=== PATIENT | male | born 1960 | race Caucasian/White ===

== ENCOUNTER → 2018-03-19 08:43 | Outpatient (CLI) | payer OTHER, SELFPAY ==
[2018-03-19 09:56] LABS: Add Manual Diff / Slide Review NO; Basophils Percent Auto 0.4 % (0-2); Eosinophils Percent Auto 1.9 % (2-4); Hematocrit 45.7 % (41-53); Hemoglobin 15.5 g/dL (13.5-17.5); Lymphocytes Percent Auto 27.4 % (25-40); Mean Corpuscular HGB Conc 33.9 % (30-36); Mean Corpuscular Hemoglobin 31.4 PG (26-34); Mean Corpuscular Volume 92.5 fL (80-100); Monocytes Percent Auto 7.7 % (3-14); Neutrophils Absolute Auto 3400 /uL (3000-5900); Neutrophils Percent Auto 62.6 % (50-75); Platelet Count 260 X10^3/uL (150-400); Red Blood Cell Count 4.94 X10^6/uL (4.5-5.9); Red Cell Distribution Width 12.9 % (11.6-14.8); White Blood Cell Count 5.5 X10^3/uL (4.5-11.0)
[2018-03-19 10:01] LABS: Carbon Dioxide 26 mmol/L (22-32); Chloride 105 mmol/L (98-107); HEMOLYSIS < 15 (0-50); Potassium 4.2 mmol/L (3.4-5.1); Sodium 143 mmol/L (137-145)
== END ==
PROVIDERS: Visit Provider Orthopaedic Surgery
DX: Z01.818 Encounter for other preprocedural examination (principal); M16.11 Unilateral primary osteoarthritis, right hip; Z01.812 Encounter for preprocedural laboratory examination
CPT/HCPCS: 36415; 80051; 85025; 93005; 93010

== ENCOUNTER 2018-04-11 07:47 | Inpatient (IN) | payer OTHER, SELFPAY ==
[2018-03-25 10:46] VITALS: BMI 38.5
[2018-04-11] VITALS (13 sets, daily range): BP systolic 104–148; BP diastolic 57–92; PULSE 52–92; RESP 11–18; TEMP 35.7–36.5; O2SAT 94–100; BMI 38.2
--- NOTE | 2018-04-11 06:00 | DI.RAD.S_ITS ---
PROCEDURE: XR PELVIS 1-2V INDICATIONS: prosthesis placement TECHNIQUE: 1 view of the lower pelvis acquired. COMPARISON: [facility] [place], [place], XR PELVIS WITH LATERAL HIP RIGHT, 03/22/2018, 9:14. FINDINGS: Bones: Patient is status post right hip arthroplasty, with hardware components in expected positions. The hip joint appears congruent. The visualized bony structures appear intact. Degenerative changes of the lower lumbar spine and left hip are not well characterized. Soft tissues: Overlying postoperative changes are noted. No suspicious soft tissue densities. No unexpected radiopaque foreign bodies are evident. Skin johana overlying the right thigh are present. IMPRESSION: Expected postoperative changes related to a right hip arthroplasty. Dictated by: Deon Ring M.D. on 04/11/2018 at 12:41 Approved by: Deon Ring M.D. on 04/11/2018 at 12:42
[2018-04-11] MEDS: ACETAMINOPHEN 325 MG TABLET 975 MG PO (08:29)
[2018-04-11] MEDS: CELECOXIB 200 MG CAPSULE PO (08:30)
[2018-04-11] MEDS: LACTATED RINGERS 1,000 ML 42 ML IV (08:30)
[2018-04-11] MEDS: PREGABALIN 75 MG CAPSULE PO (08:30)
--- NOTE | 2018-04-11 09:54 | PM.PREOP ---
Pre-operative Note Interval Note Pre-op Check: Yes History & Physical Reviewed by Physician Changes: No
[2018-04-11] MEDS: CEFAZOLIN 2 GM/100 ML FROZ.PIGGY IV ×2 (10:15→19:47)
[2018-04-11] MEDS: TRANEXAMIC ACID 1,000 MG VIAL 1000 MG INJ ×2 (10:38→11:42)
--- NOTE | 2018-04-11 10:48 | SUR.OPER ---
Lateral on padded OR bed. Gel axillary roll. Arms secured on padded armboard with pillow supporting top arm. Padded hip positioner braces x4 - anterior and posterior chest and pelvis. Additional gel pad used anterior pelvis. Gel pad under bottom leg from knee to foot and secured with tape over sheet.
[2018-04-11] MEDS: BUPIVACAINE 0.25% W/ EPI VIAL 50 ML INJ (10:54)
--- NOTE | 2018-04-11 12:35 | SUR.PHASEI ---
stable pacu report to rogelio bearden.
--- NOTE | 2018-04-11 12:44 | P.OP_ITS ---
Operative Date/Time/Diagnoses Date of procedure: 04/11/18 Time of procedure: 12:41 Post-op diagnosis: same Procedure & Clinicians Procedure: Right total hip arthroplasty (CPT code 01684 with emergency veterinary assistant) Same procedure as scheduled: Yes Indications: Patient is an 57-year-old male with severe right hip DJD. The patient has pain with activities and at rest, limited ambulation and activity tolerance, difficulties with ADLs, and failure of conservative treatment. We have discussed the nature of condition, treatment options, risks and benefits, and patient elects to proceed with total hip arthroplasty and gives informed consent. Surgeon: Soham Angela Wireless Manager: Lexus Connolly Anesthesia Type: General and Spinal Operative Notes Closure Type: primary Specimen(s): none sent Implants & Drains: Acetabulum: Diamond and Nephew R3 acetabular component size 56 mm Femoral component: Diamond and Nephew Synergy stem size 14 with standard offset Femoral head: 36 mm + 0 Oxinium Estimated Blood Loss (mL): 100 Procedure in detail: After satisfaction induction of anesthetic, and administration of IV antibiotics, the patient was positioned in the lateral decubitus position with all bony prominences well padded and pelvic position secured using a hip ammunition supervisor positioning device. Right hip and lower extremity prepped and draped in the usual sterile fashion, 1st dose of intravenous tranexamic acid was administered, then a longitudinal incision was created centered over the greater trochanter and carried sharply through the skin and subcutaneous tissues down to the fascia becky which was divided longitudinally and retracted with a Charnley retractor. External rotators visualize, cut, tagged, and retracted posteriorly, then the capsule was cut in a T-type fashion with the corners tagged and retracted. Hip was dislocated and femoral neck cut made according to preoperative templating. Acetabular retractors then placed, and the acetabular labrum and osteophytes were excised. The acetabulum was then sequentially reamed to 55 mm with an excellent circumferential ream and fit with the trial. The trial component was removed and a permanent size 56 mm Diamond and Nephew R3 acetabular component was selected, positioned, and impacted with satisfactory position and fixation achieved. Permanent liner was then inserted with the elevated lip directed posteriorly. Soft tissue then removed off the lateral femoral neck in the lateral neck was entered using a box osteotome. T-handled reamers placed down the canal followed by sequential broaching to 14 with the final broach left in place for trial reduction which demonstrated excellent leg length, range of motion, and stability characteristics with a 36 mm +0 trial ball. The trial and broach were removed, and a permanent size 14 Diamond and Nephew Synergy stem was selected and inserted with excellent position and fixation achieved. Another trial reduction yielded the above characteristics so the trial ball was exchanged for a permanent 36 mm +0 Oxinium ball. The hip was irrigated and reduced and excellent leg length range of motion and stability characteristics were achieved and maintained. The hip was copiously irrigated, and the capsule repaired with #2 Ethibond, and the piriformis was repaired back to the greater trochanter with the same. Fascia becky closed with interrupted #1 Ethibond sutures, and the subcutaneous tissues were closed in 2 layers of 0 Vicryl and 2 0 Vicryl. Skin was closed with johana and sterile dressings applied. Second dose of tranexamic acid was administered intravenously, and the anesthetic was terminated. Complications: none Condition: stable Disposition: PACU Plan for aftercare: Patient will be admitted to the acute care [facility], and anticipate discharge on postop day 1-2 with follow-up in office in 10-14 days. Outpatient physical therapy will be arranged and patient will continue to observe posterior hip precautions. Patient will continue use of postoperative Lovenox for 10 days postop.
[2018-04-11] MEDS: LACTATED RINGERS 1,000 ML 125 ML IV ×2 (13:25→21:13)
[2018-04-11] MEDS: ONDANSETRON 4 MG/2 ML INJ IV ×2 (14:10→21:10)
--- NOTE | 2018-04-11 15:42 | PC.NURSE ---
Post-op: Late entry Arrived to room 219 at 1305. Awake but drowsy, oriented X3. Dressing to R hip C/D/I. CMS+ to BLE's except for numbness (mid thigh to toes) post spinal-anesthesia. Denies pain. VSS. RA sats into the upper 80's when dozing, so placed on 2L O2. Cont pulse ox in place. Family should be bringing CPAP from home. Mild nausea, no emesis- medicated with IV Zofran. IVF per orders, site in L hand WNL. Oriented to room and call light and encouraged to make needs known. Bed alarm on.
--- NOTE | 2018-04-11 17:15 | PT.IPTN ---
Current Diagnoses Obstructive sleep apnea (adult) (pediatric) (04/11/18) Surgery Performed Operation Date: 04/11/18 10:00 Actual Procedures p Total Hip Arthroplasty(Right) - Soham Angela MD Physical Therapy Treatment Note M3 PT-IP Subjective Start: 04/11/18 17:13 Freq: NEEDED Status: Active Protocol: Document 04/11/18 17:13 EA (Rec: 04/11/18 17:14 EA [id number]) Subjective Physical Therapy Visit Type Type Patient Refusal Notes Patient is not ready at 1710 upon checking.
[2018-04-11] MEDS: METOCLOPRAMIDE 10 MG/2 ML INJ IV (18:55)
--- NOTE | 2018-04-11 20:57 | PC.NURSE ---
Emesis/Anuria Trent remains OX3, post-op VS have been stable. Right hip drsg remains CDI, reports residual numbness to right ankle and foot, able to feel nurse hand on ankle/foot but not cold or warm. Wiggling toes, SCD's in place bilaterally. Reported nausea this evening, face pale, he said elevating HOB actually helped and denies dizziness. Given IV Reglan, patient vomited 300 ml emesis approx 15 min after med administration. No void since back from surgery, bladder scan = 538 ml. Ritter placed by Molly OLSON with >600 ml output. He has taken ice chips and sips of water tonight, refused any clear or full liquids at this point. visiting at bedside.
[2018-04-11] MEDS: SODIUM CHLORIDE 0.9% FLUSH 10 ML IV (21:13)
[2018-04-12 00:47] VITALS: BP 128/72; PULSE 76; RESP 16; TEMP 36.4; O2SAT 95
[2018-04-12] MEDS: CEFAZOLIN 2 GM/100 ML FROZ.PIGGY IV (02:58)
[2018-04-12] MEDS: LACTATED RINGERS 1,000 ML 125 ML IV (02:59)
[2018-04-12 05:00] VITALS: BP 113/72; PULSE 89; RESP 16; TEMP 36.4; O2SAT 97
[2018-04-12 05:30] VITALS: O2SAT 95
[2018-04-12 06:20] LABS: Hematocrit 39.5 % (41-53); Hemoglobin 13.1 g/dL (13.5-17.5)
[2018-04-12 08:00] VITALS: BP 114/61; PULSE 70; RESP 20; TEMP 36.7; O2SAT 99
[2018-04-12 08:09] VITALS: O2SAT 93; O2SAT 95
[2018-04-12] MEDS: ACETAMINOPHEN 325 MG TABLET 975 MG PO ×2 (09:21→12:58)
[2018-04-12] MEDS: DOCUSATE 100 MG CAPSULE PO (09:22)
[2018-04-12] MEDS: ENOXAPARIN 40 MG/0.4 ML SYRINGE SUBCUT (09:22)
[2018-04-12] MEDS: INFLUENZA VACCINE 0.5 ML SYRINGE IM (09:23)
--- NOTE | 2018-04-12 10:10 | PT.IIE ---
Current Diagnoses Obstructive sleep apnea (adult) (pediatric) (04/11/18) Surgery Performed Operation Date: 04/11/18 10:00 Actual Procedures p Total Hip Arthroplasty(Right) - Soham Angela MD Surgical History (Last Updated 03/25/18 @ 11:14 by Dinah Diop RN) History of colonoscopy (Acute) History of tonsillectomy (Acute) Medical History (Last Reviewed 04/11/18 @ 16:51 by Mauro Carvajal, PT, [place]) Benign neoplasm of skin (Acute) Low back pain (Acute) Obstructive sleep apnea (Acute) Periodic limb movement disorder (Acute) Primary osteoarthritis of right hip (Acute) Restless leg syndrome (Acute) Tinnitus (Acute) Physical Therapy Inpatient Evaluation/Re-Eval M1 PT/OT-IP Prior Functional Status Start: 04/11/18 17:13 Freq: NEEDED Status: Active Protocol: Document 04/12/18 10:10 AB (Rec: 04/12/18 12:56 AB [id number]) Medical Review Prior Functional Status Medical History Reviewed Yes Communication able to make needs known Mobility and Gait stated that he is independent with all mobilities and ambulation without AD Social History Household Members significant other Living Arrangements House Number of Floors (Floors) Two Floors Number of Stairs To Enter/Railing? 5 steps to enter with L rail ; pt will stay on main level of the house Home Environment Tub/Shower Home Equipment Front Wheel Walker Raised Toilet Seat Without Armrests Shower Seat with Backrest Pantograph Setter Sock Aid Grab Bars In Shower Employment Status Station Manager Employed Additional Social History Comment pt works as a high school librarian has 2 counters next to the toilet M2 PT-IP Current Condition Start: 04/11/18 17:13 Freq: NEEDED Status: Active Protocol: Document 04/12/18 10:10 AB (Rec: 04/12/18 12:56 AB [id number]) Physical Therapy Current Condition Current Condition Evaluation Date 04/12/18 Treatment Diagnosis s/p R AMRITA Onset Date 04/11/18 Precautions Posterior Hip Precautions No Hip Flexion > 90 degrees No Hip Internal Rotation No Hip Adduction Weight Bearing Status Weight Bearing Status Weight Bear as Tolerated M3 PT-IP Subjective Start: 04/11/18 17:13 Freq: NEEDED Status: Active Protocol: Document 04/12/18 10:10 AB (Rec: 04/12/18 12:56 AB [id number]) Subjective Physical Therapy Visit Type Type Initial Evaluation Visit Start Time 10:10 Visit Stop Time 11:10 Total Visit Minutes 60 Number of RESTAURANT CREW Visits 0 Physical Therapy Visit Comments Patient Comments pt agreeable to do PT Therapy Pain Assessment Pain When Pain Assessed During Mobility Pain Present Pain Present Pain Reported Location Right Hip Intensity 2 Scale Used Numeric (1 - 10) Pain Management Techniques Timing of Activity with Medications M4 PT-IP Mobility and Gait Start: 04/11/18 17:13 Freq: NEEDED Status: Active Protocol: Document 04/12/18 10:10 AB (Rec: 04/12/18 12:56 AB [id number]) PT-Bed Mobility Assessment Supine to Sit Supine to Sit Standby Assistance PT-Transfer Assessment Sit to and From Stand Sit to and from Stand Standby Assistance Equipment Transfer Assistive Device Gait Belt Front Wheeled Walker Orthotic/Prosthetic Devices or Brace: No Transfers Transfer Destination Chair Toilet Transfer Technique pt ambulated to the chair/ toilet using FWW Transfer Ability Level of Assist Standby Assistance Gait Assessment Gait Gait Assistance Required: Standby Assistance Distance (Feet) 300 Able to Maintain Weight Bearing Status Yes During Gait Assistive Devices Assistive Device Gait Belt Front Wheeled Walker Orthotic/Prosthetic Devices or Brace: No Gait Deviations General Gait Pattern Antalgic Decreased Stride Length Decreased Feet Clearance Factors Limiting Gait Function Factors Limiting Gait Function Decreased Activity Tolerance Decreased Strength Pain Poor Balance Comments Gait Comments Pt ambulated ~ 300 ft x 2 using FWW SBA and cues. Stair Climbing Assessment Evaluation Level of Assist On Stairs Standby Assistance Devices Stair Climbing Assistive Devices Left Railing Right Railing Technique/Endurance Stair Climbing Direction Ascend and Descend Stair Climbing Technique Step to Step Number of Steps Climbed 3 Query Text: Stair Climbing Set # Repetitions (reps) 2 Comments Stair Climbing Comments pt completed up/down using bilateral rails SBa and then completed again using L rail ascending SBA. PT-Balance Assessment Sitting Balance and Reactions Static Sitting Balance Ability Good Dynamic Sitting Balance Ability Good Standing Balance and Reactions Static Standing Balance Ability Fair Dynamic Standing Balance Ability Fair Device Used FWW M5 PT-IP Objective Assessments Start: 04/11/18 17:13 Freq: NEEDED Status: Active Protocol: Document 04/12/18 10:10 AB (Rec: 04/12/18 12:56 AB [id number]) Orientation Orientation/Cognition Level of Alertness Alert Orientation Name Age Birthday Month Date Year Day of Week Place Situation Safety Awareness Understands Safety Issues Memory Description No Deficits Noted Gross Range of Motion Lower Extremity ROM Assessment Within Functional Limits Strength Lower Extremity Strength Assessment Right Impaired Knee 3+/5 Muscle Tone Muscle Tone WNL Yes M6 PT-IP Treatment Start: 04/11/18 17:13 Freq: NEEDED Status: Active Protocol: Document 04/12/18 10:10 AB (Rec: 04/12/18 12:56 AB [id number]) Physical Therapy Treatment Education Education Provided Precautions Weight Bearing Status Post-Op Packet Safety M7 PT-IP Assessment and Plan Start: 04/11/18 17:13 Freq: NEEDED Status: Active Protocol: Document 04/12/18 10:10 AB (Rec: 04/12/18 12:56 AB [id number]) PT Summary Assessment and Plan Potential Rehabilitation Potential Good Status of Condition at Evaluation Stable Summary Impairments Pain ROM Strength Balance Coordination Sensation Tone Cognition Bed Mobility Transfers Gait Activity Tolerance Assessment Summary Pt requiring SBA with mobility and plans to go home with family to assist him. pt stated that he is set up for outpt PT. pt may go home when medically stable. Goals Bed Mobility Goal Independent Transfer Goal Independent Front Wheeled Walker Gait Goal Independent Front Wheel Walker Gait Distance >300 Other Goals up/down 5 steps L rail ascending Kait Days to Meet Goals 3 Frequency of Treatment Frequency Of Treatment Twice a Day Treatment Plan Physical Therapy Treatment Plan Bed Mobility Training Transfer Training Gait Training Therapeutic Exercise Balance Retraining Post Op Education Discharge Planning Hot or Cold Pack Neuromuscular Re-ed Coordination Retraining Manual Therapy Recommendations To Nursing Amount of Assist Needed Standby Assistance Discharge Recommendations PT Discharge Recommendations Home with Assistance Outpatient PT
[2018-04-12 11:15] VITALS: BP 133/59; PULSE 96; RESP 18; TEMP 37.2; O2SAT 94
--- NOTE | 2018-04-12 15:48 | PC.NURSE ---
Shift summary/discharge: Late entry Alert and oriented X3. Was cleared by PT to go home earlier this morning. We waited to make sure he could tolerate a general diet for lunch without N/V, which he did. Pain in R hip well-managed with scheduled Tylenol, rated 2/10 at most. CMS++. Bulky R hip dressing replaced with Aquacel dressing prior to discharge (per okay from head host/hostess working with Dr Angela today)- incision was well-approximated with johana and covered with Xeroform gauze, no notable erythema/bleeding/drainage. Reviewed all d/c info thoroughly with patient and answered all questions. His [id number] is a advanced nursing professor (who was here as a student today and I spoke with her) and she is going to be doing his Lovenox injections at home. Given script for Lovenox. All other scripts were filled prior to surgery. Patient was made aware that he needs to buy OTC Tylenol, plus baby Aspirin (which he knows to start when the Lovenox is all gone). Instructed to keep dressing clean/dry and to leave on until follow up. All belongings collected and sent with patient. IV dc'd intact. Taken out via wheelchair to private vehicle (at approx 1430) by nursing staff.
== END 2018-04-12 14:24 | disposition home or self-care (01) | DRG 470 ==
PROVIDERS: Admitting Provider Orthopaedic Surgery; Visit Provider Orthopaedic Surgery
PROC: 0SR90JZ Replacement of Right Hip Joint with Synthetic Substitute, Open Approach (ICD-10-PCS; CPT 27130; principal; 2018-04-11 10:00)
DX: M16.11 Unilateral primary osteoarthritis, right hip (principal); G47.33 Obstructive sleep apnea (adult) (pediatric); E11.9 Type 2 diabetes mellitus without complications; E66.9 Obesity, unspecified; Z68.38 Body mass index [BMI] 38.0-38.9, adult
CPT/HCPCS: 36415; 72170; 85014; 85018; 90471; 90656; 94760; 97116; 97161; 97530; C1776; J0690; J1100; J1650; J2250; J2274; J2405; J2704; J2765; Q2038